=== PATIENT | male | born 1960 | race Caucasian/White ===

== ENCOUNTER → 2019-09-07 | Outpatient (CLI) | payer BC | END | disposition home or self-care (01) | LOC: RAD 15:19 | PROVIDERS: ATTEND Family Medicine | DX: M79.662 Pain in left lower leg (principal) ==

== ENCOUNTER 2021-06-16 13:46 | Outpatient (CLI) | payer BC | END 2021-06-16 23:59 | disposition home or self-care (01) | LOC: CFH 13:46 | PROVIDERS: ATTEND Physician Assistant Surgical | DX: M50.323 Other cervical disc degeneration at C6-C7 level (principal); M47.892 Other spondylosis, cervical region; M25.78 Osteophyte, vertebrae; M48.02 Spinal stenosis, cervical region | CPT/HCPCS: 72125 ==